=== PATIENT | male | born 1950 | race Caucasian/White ===

== ENCOUNTER 2018-04-23 14:45 | Inpatient (IN) | payer OTHER ==
[2018-04-23] MEDS ORDERED: SODIUM CHLORIDE 0.9% 1,000 ML IV STA (15:41)
--- NOTE | 2018-04-23 15:52 | ED ---
General Adult HPI - General Chief complaint: Dizziness Stated complaint: Dizziness, Syncope Time Seen by Provider: 04/23/18 15:31 Source: EMS, RN notes reviewed Mode of arrival: EMS Limitations: no limitations - History of Present Illness Initial comments: Patient 67-year-old male presenting to the emergency room today with a chief complaint of syncopal episode. Patient does admit that he was eating lunch with his at a restaurant when he became very pale and diaphoretic. states that he was somewhat unresponsive just staring off. Patient admits that just prior to that he felt that he was short of breath and had a headache. Patient states that he still feeling somewhat lightheaded at this time with mild headache located in the front. This but that is had some nasal congestion recently. Patient denies any other pain. Patient does admit that he lost function of his bowels with this episode. states that this lasted approximately a minute. States firefighters were closed and were able to help him wake him back up. - Related Data Home Medications Medication Instructions Recorded Confirmed Hydrochlorothiazide 25 mg PO DAILY 04/23/18 04/23/18 Lisinopril 20 mg PO DAILY 04/23/18 04/23/18 Omeprazole 20 mg PO DAILY 04/23/18 04/23/18 amLODIPine [Norvasc] 5 mg PO DAILY 04/23/18 04/23/18 Allergies Allergy/AdvReac Type Severity Reaction Status Date / Time Tetanus Vaccines and Toxoid AdvReac Swelling Verified 04/23/18 16:51 Review of Systems ROS Statement: Those systems with pertinent positive or pertinent negative responses have been documented in the HPI. ROS Other: All systems not noted in ROS Statement are negative. Past Medical History Past Medical History: Hypertension Additional Past Medical History / Comment(s): Hiatel hernia History of Any Multi-Drug Resistant Organisms: None Reported Past Surgical History: Appendectomy Smoking Status: Never smoker Past Alcohol Use History: Occasional Past Drug Use History: Marijuana General Exam - General Exam Comments Initial Comments: General: The patient is awake and alert, in no distress, and does not appear acutely ill. Eye: Pupils are equal, round and reactive to light, extra-ocular movements are intact. No nystagmus. There is normal conjunctiva bilaterally. No signs of icterus. Ears, nose, mouth and throat: There are moist mucous membranes and no oral lesions. Neck: The neck is supple, there is no tenderness or JVD. Cardiovascular: There is a regular rate and rhythm. No murmur, rub or gallop is appreciated. Respiratory: Lungs are clear to auscultation, respirations are non-labored, breath sounds are equal. No wheezes, stridor, rales, or rhonchi. Gastrointestinal: Soft, non-distended, non-tender abdomen without masses or organomegaly noted. There is no rebound or guarding present. No CVA tenderness. Musculoskeletal: Normal ROM, no tenderness. Strength 5/5. Sensation intact. Pulses equal bilaterally 2+. Neurological: A&O x 3. CN II-XII intact, There are no obvious motor or sensory deficits. Coordination appears grossly intact. Speech is normal. Skin: Skin is warm and dry and no rashes or lesions are noted. Psychiatric: Cooperative, appropriate mood & affect, normal judgment. Limitations: no limitations Course Vital Signs 04/23/18 14:51 Temperature 98.0 F Pulse Rate 72 Respiratory 18 Rate Blood Pressure 116/73 O2 Sat by Pulse 98 Oximetry EKG Findings - EKG Comments: EKG Findings:: EKG performed at 1509: Shows normal sinus rhythm at 62 bpm. ID interval 142. QRS 154. QT/QTc 462/468. No acute ST change. Medical Decision Making - Medical Decision Making Patient reexamined at this time shows no signs of distress is resting currently. Does admit that he's continued to have improvement of his symptoms of lightheadedness. Patient did have a syncopal episode earlier today while he was eating lunch. Patient's EKG shows no acute ST changes. Patient's labs been reviewed and negative d-dimer. Negative cardiac enzymes. Chest x-ray shows rotated exam no acute abnormality. CT the brain was negative but does show possible mass in the left nasal passage. His results were discussed with patient. Case discussed with attending physician Dr. Pastrana who did discuss with admitting physician Dr. Burton who will admit the patient and consult to cardiology/neurology - Lab Data Result diagrams: 04/23/18 15:36 04/23/18 15:36 Lab Results 04/23/18 04/23/18 04/23/18 Range/Units 15:36 15:36 15:36 WBC 11.6 H (3.8-10.6) k/uL RBC 5.02 (4.30-5.90) m/uL Hgb 15.5 (13.0-17.5) gm/dL Hct 46.6 (39.0-53.0) % MCV 92.9 (80.0-100.0) fL MCH 30.8 (25.0-35.0) pg MCHC 33.2 (31.0-37.0) g/dL RDW 13.1 (11.5-15.5) % Plt Count 237 (150-450) k/uL Neutrophils % 73 % Lymphocytes % 18 % Monocytes % 5 % Eosinophils % 3 % Basophils % 0 % Neutrophils # 8.4 H (1.3-7.7) k/uL Lymphocytes # 2.1 (1.0-4.8) k/uL Monocytes # 0.5 (0-1.0) k/uL Eosinophils # 0.3 (0-0.7) k/uL Basophils # 0.0 (0-0.2) k/uL PT (9.0-12.0) sec INR (<1.2) APTT (22.0-30.0) sec D-Dimer (<0.60) mg/L FEU Sodium 137 (137-145) mmol/L Potassium 3.2 L (3.5-5.1) mmol/L Chloride 104 (98-107) mmol/L Carbon Dioxide 21 L (22-30) mmol/L Anion Gap 12 mmol/L BUN 14 (9-20) mg/dL Creatinine 0.85 (0.66-1.25) mg/dL Est GFR (CKD-EPI)AfAm >90 (>60 ml/min/1.73 sqM) Est GFR (CKD-EPI)NonAf >90 (>60 ml/min/1.73 sqM) Glucose 154 H (74-99) mg/dL Calcium 8.3 L (8.4-10.2) mg/dL Total Bilirubin 0.7 (0.2-1.3) mg/dL AST 30 (17-59) U/L ALT 32 (21-72) U/L Alkaline Phosphatase 55 (38-126) U/L Total Creatine Kinase 102 (55-170) U/L CK-MB (CK-2) 0.7 (0.0-2.4) ng/mL CK-MB (CK-2) Rel Index 0.7 Troponin I <0.012 (0.000-0.034) ng/mL Total Protein 6.2 L (6.3-8.2) g/dL Albumin 3.7 (3.5-5.0) g/dL 04/23/18 Range/Units 15:36 WBC (3.8-10.6) k/uL RBC (4.30-5.90) m/uL Hgb (13.0-17.5) gm/dL Hct (39.0-53.0) % MCV (80.0-100.0) fL MCH (25.0-35.0) pg MCHC (31.0-37.0) g/dL RDW (11.5-15.5) % Plt Count (150-450) k/uL Neutrophils % % Lymphocytes % % Monocytes % % Eosinophils % % Basophils % % Neutrophils # (1.3-7.7) k/uL Lymphocytes # (1.0-4.8) k/uL Monocytes # (0-1.0) k/uL Eosinophils # (0-0.7) k/uL Basophils # (0-0.2) k/uL PT 10.6 (9.0-12.0) sec INR 1.0 (<1.2) APTT 22.3 (22.0-30.0) sec D-Dimer 0.46 (<0.60) mg/L FEU Sodium (137-145) mmol/L Potassium (3.5-5.1) mmol/L Chloride (98-107) mmol/L Carbon Dioxide (22-30) mmol/L Anion Gap mmol/L BUN (9-20) mg/dL Creatinine (0.66-1.25) mg/dL Est GFR (CKD-EPI)AfAm (>60 ml/min/1.73 sqM) Est GFR (CKD-EPI)NonAf (>60 ml/min/1.73 sqM) Glucose (74-99) mg/dL Calcium (8.4-10.2) mg/dL Total Bilirubin (0.2-1.3) mg/dL AST (17-59) U/L ALT (21-72) U/L Alkaline Phosphatase (38-126) U/L Total Creatine Kinase (55-170) U/L CK-MB (CK-2) (0.0-2.4) ng/mL CK-MB (CK-2) Rel Index Troponin I (0.000-0.034) ng/mL Total Protein (6.3-8.2) g/dL Albumin (3.5-5.0) g/dL Disposition Clinical Impression: Syncope Disposition: ADMITTED IP TO THIS [facility] Condition: Stable Is patient prescribed a controlled substance at d/c from ED?: No Referrals: Nonstaff,Physician [Primary Care Provider] - 1-2 days Time of Disposition: 17:01
[2018-04-23 15:55] LABS: Basophils % (A) 0 %; Eosinophils # (A) 0.3 k/uL (0-0.7); Eosinophils % (A) 3 %; HCT 46.6 % (39.0-53.0); HGB 15.5 gm/dL (13.0-17.5); Lymphocytes # (A) 2.1 k/uL (1.0-4.8); Lymphocytes % (A) 18 %; MCH 30.8 pg (25.0-35.0); MCHC 33.2 g/dL (31.0-37.0); MCV 92.9 fL (80.0-100.0); Mean Platelet Volume 7.9; Monocytes # (A) 0.5 k/uL (0-1.0); Monocytes % (A) 5 %; Neutrophils # (A) 8.4 k/uL (1.3-7.7); Neutrophils % (A) 73 %; Platelet Count 237 k/uL (150-450); RBC 5.02 m/uL (4.30-5.90); RDW 13.1 % (11.5-15.5); WBC 11.6 k/uL (3.8-10.6)
[2018-04-23 16:05] LABS: ALT 32 U/L (21-72); AST 30 U/L (17-59); Albumin 3.7 g/dL (3.5-5.0); Alkaline Phosphatase 55 U/L (38-126); Anion Gap 12 mmol/L; Blood Urea Nitrogen 14 mg/dL (9-20); Calcium 8.3 mg/dL (8.4-10.2); Carbon Dioxide 21 mmol/L (22-30); Chloride 104 mmol/L (98-107); Glucose 154 mg/dL (74-99); Potassium 3.2 mmol/L (3.5-5.1); Sodium 137 mmol/L (137-145); Total Bilirubin 0.7 mg/dL (0.2-1.3); Total Protein 6.2 g/dL (6.3-8.2)
[2018-04-23 16:13] LABS: D-Dimer 0.46 mg/L FEU (<0.60); Partial Thromboplastin Time 22.3 sec (22.0-30.0); Prothrombin Time 10.6 sec (9.0-12.0)
--- NOTE | 2018-04-23 16:14 | XR ---
EXAMINATION TYPE: XR chest 2V DATE OF EXAM: 04/23/2018 COMPARISON: NONE HISTORY: Syncope TECHNIQUE: Frontal and lateral views of the chest are obtained. FINDINGS: There is no focal air space opacity, pleural effusion, or pneumothorax seen. The cardiac silhouette size is possibly enlarged however size may be accentuated by rotation. The osseous struc tures are intact. IMPRESSION: Rotated exam. There may be cardiomegaly.
[2018-04-23 16:15] LABS: Creatine Kinase 102 U/L (55-170)
[2018-04-23 16:28] LABS: Creatine Kinase MB 0.7 ng/mL (0.0-2.4); Troponin I <0.012 ng/mL (0.000-0.034)
--- NOTE | 2018-04-23 16:29 | CT ---
EXAMINATION TYPE: CT brain wo con DATE OF EXAM: 04/23/2018 COMPARISON: Near syncope and dizziness HISTORY: Near syncope. dizziness CT DLP: 1166.4 mGycm Automated exposure control for dose reduction was used. Helical acquisition through the brain. FINDINGS: Cerebral vascular calcifications are present. There is no hemorrhage or hydrocephalus present. The or bits show symmetric appearance. Cortical atrophy is likely age-related. Calvarium is intact. Paranasa l sinuses and mastoid air cells are remarkable for inflammatory change especially in the right maxill en sinus, question soft tissue density along the posterior aspect of the nasal passage on the left, possible mucus retention cyst in the sphenoid sinus on the right IMPRESSION: CANNOT EXCLUDE MASS ALONG THE POSTERIOR NASAL PASSAGE ON THE LEFT, AXIAL IMAGE 6. AGE-RELATED ATROPHY . SINUS DISEASE.
[2018-04-23] MEDS ORDERED: NALOXONE 0.4 MG/ML 1 ML VIAL IV PRN (17:02)
[2018-04-23] MEDS ORDERED: SODIUM CHLORIDE 0.9% 1,000 ML IV ONE (17:02)
[2018-04-23] MEDS ORDERED: NITROGLYCERIN SL TABS 0.4 MG TAB SUBLINGUAL PRN (17:04)
[2018-04-23 17:08] LABS: Appearance,Urine Clear (Clear); Bilirubin,Urine Negative (Negative); Blood,Urine Negative (Negative); Color,Urine Light Yellow; Glucose,Urine (UA) Negative (Negative); Ketones,Urine Negative (Negative); Leukocyte Esterase,Urine Negative (Negative); Nitrite,Urine Negative (Negative); Protein,Urine Negative (Negative); Specific Gravity,Urine 1.007 (1.001-1.035); Urobilinogen,Urine <2.0 mg/dL (<2.0)
[2018-04-23] MEDS ORDERED: Potassium Replacement Protocol 1 EACH MISC MISCELLANE PRN ×2 (18:10→18:31)
[2018-04-23] MEDS ORDERED: Magnesium Replacement Protocol 1 EACH MISC MISCELLANE PRN (18:10)
[2018-04-23] MEDS ORDERED: ACETAMINOPHEN TAB 325 MG TAB PO PRN (18:12)
[2018-04-23] MEDS ORDERED: ONDANSETRON 4 MG/2 ML VIAL IVP PRN (18:12)
--- NOTE | 2018-04-23 18:18 | P.HPIM ---
History of Present Illness H&P Date: 04/23/18 Chief Complaint: Syncope This is a 67-year-old male with past medical history significant for essential hypertension who presented to the emergency room with an episode of syncope. Patient was having lunch at the restaurant with his when he started feeling dizzy and sick to his stomach. He said that he had some blurred vision and felt that his mouth was dry and then staying here remember somebody rubbing on his chest to wake him up. Patient said that he lost control of his bowels. His is not at bedside that she informed the ER provider that patient lost consciousness for approximately 1 minute. One of the restaurant customer was a indoor plant technician and got up and started rubbing on his chest and subsequently patient woke up. There was no reported tremors or seizure-like activity. Patient himself denies any chest pain prior to the episode. He denies being stressed about anything in particular. He is usually fairly active and does not have any cardiac history. Patient was evaluated in the emergency room and computed tomography scan of the head showed no acute intracranial process. There was questionable soft tissue mass along the posterior nasal passage. Lab work was generally unremarkable except for hypokalemia. 12-lead ECG showed right bundle branch block. No prior ECG available for me to compare. Patient himself reports feeling better. He informed me that he always have trouble breathing with his left nostril. He reports a history of nasal fracture many years ago. Review of Systems Review of system: 14 points review of systems were obtained and were negative except to what were mentioned in the HPI. Past Medical History Past Medical History: Hypertension Additional Past Medical History / Comment(s): Hiatel hernia History of Any Multi-Drug Resistant Organisms: None Reported Past Surgical History: Appendectomy Smoking Status: Never smoker Past Alcohol Use History: Occasional Past Drug Use History: Marijuana Medications and Allergies Home Medications Medication Instructions Recorded Confirmed Type Hydrochlorothiazide 25 mg PO DAILY 04/23/18 04/23/18 History Lisinopril 20 mg PO DAILY 04/23/18 04/23/18 History Omeprazole 20 mg PO DAILY 04/23/18 04/23/18 History amLODIPine [Norvasc] 5 mg PO DAILY 04/23/18 04/23/18 History Allergies Allergy/AdvReac Type Severity Reaction Status Date / Time Tetanus Vaccines and Toxoid AdvReac Swelling Verified 04/23/18 16:51 Physical Exam Vitals: Vital Signs Temp Pulse Resp BP Pulse Ox 04/23/18 17:14 69 18 116/73 99 04/23/18 14:51 98.0 F 72 18 116/73 98 Intake and Output 04/23/18 04/23/18 04/23/18 06:59 14:59 22:59 Other: Weight 99.79 kg General: The patient is awake and alert, in no distress Eye: there is normal conjunctiva bilaterally. Neck: The neck is supple, there is no JVD. Cardiovascular: Normal S1-S2, no S3-S4, no murmurs. Respiratory: Lungs clear to auscultation bilaterally Gastrointestinal: Abdomen is soft, nontender Musculoskeletal: There is no pedal edema. Neurological:. Speech is normal. Skin: Skin is warm and dry Results CBC & Chem 7: 04/23/18 15:36 04/23/18 15:36 Labs: Abnormal Lab Results - Last 24 Hours (Table) 04/23/18 04/23/18 Range/Units 15:36 15:36 WBC 11.6 H (3.8-10.6) k/uL Neutrophils # 8.4 H (1.3-7.7) k/uL Potassium 3.2 L (3.5-5.1) mmol/L Carbon Dioxide 21 L (22-30) mmol/L Glucose 154 H (74-99) mg/dL Calcium 8.3 L (8.4-10.2) mg/dL Total Protein 6.2 L (6.3-8.2) g/dL Assessment and Plan Assessment: 1. Syncopal episode, possibly vasovagal. Twelve-lead ECG showed right bundle branch block. We will continue telemetry monitoring. Cardiology and neurology consulted. Echocardiogram ordered. I would check orthostatic blood pressure. Continue IV fluid hydration. Computed tomography scan of the brain with no acute intracranial process. 2. Questionable soft tissue mass along the posterior nasal passage on CT of the head: I will obtain CT sinuses for further evaluation. 3. Hypokalemia, ordered a replacement per protocol 4. Essential hypertension: Blood pressure borderline low. Hold home but pressure medication and continue to monitor closely 5. DVT prophylaxis with subcu heparin
--- NOTE | 2018-04-23 19:01 | CT ---
EXAMINATION TYPE: CT sinus w con DATE OF EXAM: 04/23/2018 COMPARISON: None HISTORY: Nasal mass CT DLP: 428.4 mGycm Automated exposure control for dose reduction was used. CONTRAST: CT scan of the facial bones is performed with IV Contrast, patient injected with 100 mL of Isovue 300 . TECHNIQUE: CT scan of the sinuses is performed without contrast, axial images are obtained, coronal r eformatted images are also reviewed. FINDINGS: There is some mucosal thickening in the left maxillary sinus. Zygomatic arches appear sarah l. Nasal bone is intact. There is no evidence of retro-orbital mass. There is small mucus retention c yst in the right side sphenoid sinus. Frontal sinuses appear normally aerated. There is no focal bon e destruction. There is no pathologic enhancement. There is 2 x 1 cm area of mucosal thickening in th e posterior nasopharynx on the left side. IMPRESSION: There is evidence of right-sided sphenoid and left-sided maxillary sinusitis. There is mu cosal thickening in the posterior nasopharynx on the left side.
[2018-04-23 20:11] VITALS: BMI 32.5
[2018-04-23] MEDS: POTASSIUM CHLORIDE ER 20 MEQ TAB.ER PO SCH ×2 (20:34→21:34)
[2018-04-23] MEDS: HEPARIN SODIUM,PORCINE 5,000 UNIT/ML 1 ML VIAL SQ SCH (20:34)
[2018-04-23 21:46] LABS: Creatine Kinase 89 U/L (55-170)
[2018-04-23 22:00] LABS: Creatine Kinase MB 0.8 ng/mL (0.0-2.4); Troponin I <0.012 ng/mL (0.000-0.034)
[2018-04-24 03:48] LABS: Basophils % (A) 0 %; Eosinophils # (A) 0.3 k/uL (0-0.7); Eosinophils % (A) 3 %; HGB 14.9 gm/dL (13.0-17.5); Lymphocytes # (A) 2.2 k/uL (1.0-4.8); Lymphocytes % (A) 26 %; MCHC 33.2 g/dL (31.0-37.0); MCV 93.3 fL (80.0-100.0); Monocytes # (A) 0.6 k/uL (0-1.0); Monocytes % (A) 7 %; Neutrophils # (A) 5.4 k/uL (1.3-7.7); Neutrophils % (A) 63 %; Platelet Count 191 k/uL (150-450); RBC 4.82 m/uL (4.30-5.90); RDW 13.2 % (11.5-15.5); WBC 8.6 k/uL (3.8-10.6)
[2018-04-24 04:00] LABS: ALT 39 U/L (21-72); AST 20 U/L (17-59); Albumin 3.3 g/dL (3.5-5.0); Alkaline Phosphatase 59 U/L (38-126); Anion Gap 7 mmol/L; Blood Urea Nitrogen 12 mg/dL (9-20); Calcium 8.8 mg/dL (8.4-10.2); Carbon Dioxide 25 mmol/L (22-30); Chloride 107 mmol/L (98-107); Cholesterol 183 mg/dL (<200); Glucose 104 mg/dL (74-99); HDL Cholesterol 31 mg/dL (40-60); Magnesium 1.9 mg/dL (1.6-2.3); Potassium 3.7 mmol/L (3.5-5.1); Sodium 139 mmol/L (137-145); Total Bilirubin 0.4 mg/dL (0.2-1.3); Total Protein 5.7 g/dL (6.3-8.2); Triglycerides 403 mg/dL (<150)
[2018-04-24 04:35] LABS: Creatine Kinase 71 U/L (55-170)
[2018-04-24 04:47] LABS: Creatine Kinase MB 0.5 ng/mL (0.0-2.4); Troponin I <0.012 ng/mL (0.000-0.034)
[2018-04-24] MEDS: HEPARIN SODIUM,PORCINE 5,000 UNIT/ML 1 ML VIAL SQ SCH (08:06)
[2018-04-24 08:14] VITALS: BP 114/72; PULSE 68; RESP 16; TEMP 97
[2018-04-24] MEDS ORDERED: AMOXIC-POT CLAV 875-125MG 1 EACH TAB PO SCH (09:00)
[2018-04-24] MEDS ORDERED: PANTOPRAZOLE 40 MG/10 ML VIAL IVP SCH (09:00)
[2018-04-24] MEDS ORDERED: POTASSIUM CHLORIDE ER 20 MEQ TAB.ER PO STA (09:45)
--- NOTE | 2018-04-24 10:07 | ECHOF ---
Referral Reason:syncope MEASUREMENTS -------- HEIGHT: 182.9 cm WEIGHT: 99.8 kg BP: 117/75 RVIDd: 3.5 cm (< 3.3) IVSd: 1.5 cm (0.6 - 1.1) LVIDd: 3.8 cm (3.9 - 5.3) LVPWd: 1.5 cm (0.6 - 1.1) IVSs: 2.5 cm LVIDs: 2.1 cm LVPWs: 1.8 cm LAESV Index (A-L): 17.23 ml/m Ao Diam: 3.3 cm (2.0 - 3.7) AV Cusp: 2.0 cm (1.5 - 2.6) LA Diam: 4.2 cm (2.7 - 3.8) MV EXCURSION: 15.249 mm (> 18.000) MV EF SLOPE: 80 mm/s (70 - 150) EPSS: 0.3 cm MV E Angel: 0.80 m/s MV DecT: 215 ms MV A Angel: 0.84 m/s MV E/A Ratio: 0.95 RAP: 5.00 mmHg RVSP: 14.21 mmHg FINDINGS -------- Sinus rhythm. This was a technically difficult study with suboptimal views. The left ventricular size is normal. There is moderate concentric left ventricular hypertrophy. O verall left ventricular systolic function is normal with, an EF between 55 - 60 %. The right ventricle is mildly enlarged. The left atrium is normal in size. The right atrium is normal in size. 5.0mg of Lumason was utilized for enhancement of images The aortic valve is trileaflet, and appears structurally normal. No aortic stenosis or regurgitation. There is trace mitral regurgitation. Trace tricuspid regurgitation present. The right ventricular systolic pressure, as measured by Dopp ler, is 14.21mmHg. Pulmonic valve appears structurally normal. The aortic root size is normal. The pericardium is normal. CONCLUSIONS -------- 1. Sinus rhythm. 2. This was a technically difficult study with suboptimal views. 3. The left ventricular size is normal. 4. There is moderate concentric left ventricular hypertrophy. 5. Overall left ventricular systolic function is normal with, an EF between 55 - 60 %. 6. The right ventricle is mildly enlarged. 7. The left atrium is normal in size. 8. The right atrium is normal in size. 9. 5.0mg of Lumason was utilized for enhancement of images 10. The aortic valve is trileaflet, and appears structurally normal. No aortic stenosis or regurgitat ion. 11. There is trace mitral regurgitation. 12. Trace tricuspid regurgitation present. 13. The right ventricular systolic pressure, as measured by Doppler, is 14.21mmHg. 14. Pulmonic valve appears structurally normal. 15. The aortic root size is normal. 16. The pericardium is normal. COMMUNICATIONS INSTRUCTOR: Martina Multani RDCS
--- NOTE | 2018-04-24 12:12 | P.DS ---
Providers Date of admission: 04/23/18 17:14 Expected date of discharge: 04/24/18 Attending physician: Deidre Vaughn MD Consults: 04/23/18 17:02 Consult Physician Stat Consulting Provider: [facility] Consult Reason/Comments: Syncope Do you want consulting provider notified?: Yes Consult Physician Stat Consulting Provider: Belén Chaudhry Consult Reason/Comments: Syncope Do you want consulting provider notified?: Yes Primary care physician: Physician Nonstaff Hospital Course: This is a 67-year-old male with past medical history significant for essential hypertension presented to the emergency room with a syncopal episode. He is referred to my H&P for details about the episode. Patient was evaluated in 12- lead EKG showed evidence of right bundle branch block. This is not known if it is old or new. Patient was placed in observation and on telemetry monitoring. No events noted on telemetry monitoring. He was seen and evaluated by cardiology. His syncope could be vasovagal. Echocardiogram showed a preserved ejection fraction and no significant valvular abnormalities. Orthostatic blood pressure checked and negative. Most of his lab work was within acceptable range. Computed tomography scan of the brain showed no acute intracranial findings. There was evidence of sinusitis as detailed in CT sinuses report. Patient was cleared I cardiology for discharge home. He will need to have an outpatient cafeteria monitor or loop recorder for further monitoring. He will follow-up with his trigonometry teacher in [place] for that. He was counseled extensively that he should not drive or operate motor vehicle for 6 months. He verbalizes understanding of dose recommendations and that's the [facility] law. Below is a list of his medical problems addressed during this hospitalization 1. Syncopal episode: Workup as above 2. Acute on chronic sinusitis Will give a prescription for Augmentin x7 days 3. Essential hypertension, blood pressure within acceptable range. Discontinue amlodipine. Continue lisinopril and hydrochlorothiazide Patient will be discharged home in a stable condition. He will follow-up with his PCP and trigonometry teacher in [place]. Patient Condition at Discharge: Fair Plan - Discharge Summary Discharge Rx Participant: No New Discharge Prescriptions: New Amoxic-Pot Clav 875-125Mg [Augmentin 875-125] 1 each PO Q12HR #10 tab Fenofibrate 160 mg PO DAILY #30 tab Continue Omeprazole 20 mg PO DAILY Lisinopril 20 mg PO DAILY Hydrochlorothiazide 25 mg PO DAILY Discontinued amLODIPine [Norvasc] 5 mg PO DAILY Discharge Medication List Hydrochlorothiazide 25 mg PO DAILY 04/23/18 [History] Lisinopril 20 mg PO DAILY 04/23/18 [History] Omeprazole 20 mg PO DAILY 04/23/18 [History] Amoxic-Pot Clav 875-125Mg [Augmentin 875-125] 1 each PO Q12HR #10 tab 04/24/18 [ Rx] Fenofibrate 160 mg PO DAILY #30 tab 04/24/18 [Rx] Follow up Appointment(s)/Referral(s): Nonstaff,Physician [Primary Care Provider] - 1-2 days Discharge Disposition: HOME SELF-CARE
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
== END 2018-04-24 13:31 | disposition home or self-care (01) | DRG 312 ==
LOC: EC 14:45 → OBSVTOIN 17:14 → 3SCARD 17:14
PROVIDERS: ADMIT Family Medicine; ATTEND Family Medicine
DX: R55 Syncope and collapse (principal); E87.6 Hypokalemia; I10 Essential (primary) hypertension; J01.90 Acute sinusitis, unspecified; J32.9 Chronic sinusitis, unspecified; K21.9 Gastro-esophageal reflux disease without esophagitis; K44.9 Diaphragmatic hernia without obstruction or gangrene; I45.10 Unspecified right bundle-branch block; Z79.899 Other long term (current) drug therapy; Z90.49 Acquired absence of other specified parts of digestive tract; Z87.81 Personal history of (healed) traumatic fracture; Z88.7 Allergy status to serum and vaccine; Z87.891 Personal history of nicotine dependence; Z82.49 Family history of ischemic heart disease and other diseases of the circulatory system; Z81.8 Family history of other mental and behavioral disorders
CPT/HCPCS: 36415; 70450; 70487; 71046; 80053; 80061; 81003; 82550; 82553; 83735; 84132; 84484; 85025; 85379; 85610; 85730; 93005; 93306; 96360; 99285